=== PATIENT | male | born 1985 | race Caucasian/White ===

== ENCOUNTER 2020-06-21 22:25 | Emergency (ER) | payer OTHER ==
[~2020-06-21] VITALS: Ht 175.3 cm; Wt 68.0 kg
[~2020-06-21 22:25] MED LIST: FLOMAX PO; PERCOCET 5-3251 EACH PO; PHENERGAN25 MG RE; SPACERADULT
[2020-06-21] MEDS ORDERED: PENICILLIN VK250 MG PO (23:14)
[2020-06-21] MEDS ORDERED: HYDROCODON-ACE1 EAC8 PO (23:14)
[2020-06-21 23:21] VITALS: BP 124/75
== END 2020-06-21 23:21 | disposition home or self-care (01) ==
LOC: M.ERS 22:25
DX: K08.89 Other specified disorders of teeth and supporting structures (principal); Z87.442 Personal history of urinary calculi

== ENCOUNTER 2021-01-06 12:56 | Emergency (ER) | payer OTHER ==
[~2021-01-06] VITALS: Ht 175.3 cm; Wt 65.8 kg
[~2021-01-06 12:56] MED LIST changes: +HYDROCODON-ACE1 EAC8 PO; +PENICILLIN VK250 MG PO
[2021-01-06] MEDS ORDERED: PROAIR HFA8.5 GM INH ×2 (13:20→15:23)
[2021-01-06] MEDS ORDERED: MEDROLDOSEPACK PO (15:23)
[2021-01-06] MEDS ORDERED: APAP W/CODEINE1 TA2 PO ×2 (15:23→15:24)
[2021-01-06] MEDS ORDERED: PROMETHAZI6.25 MG/5 PO (15:23)
[2021-01-06 15:37] VITALS: BP 111/79
== END 2021-01-06 15:38 | disposition home or self-care (01) ==
LOC: M.ERS 12:56
DX: J06.9 Acute upper respiratory infection, unspecified (principal); Z20.822 Contact with and (suspected) exposure to COVID-19; Z87.442 Personal history of urinary calculi; Z98.890 Other specified postprocedural states

== ENCOUNTER 2021-01-08 12:56 | Emergency (ER) | payer OTHER ==
[~2021-01-08] VITALS: Ht 175.3 cm; Wt 65.8 kg
[~2021-01-08 12:56] MED LIST changes: +APAP W/CODEINE1 TA2 PO; +MEDROLDOSEPACK PO; +PROAIR HFA8.5 GM INH; +PROMETHAZI6.25 MG/5 PO
[2021-01-08 14:45] LABS: ABSOLUTE LYMPHOCYTES 1.8 thou/uL (0.8-5.3); ABSOLUTE MONOCYTES 0.5 thou/uL (0.0-1.2); ABSOLUTE NEUTROPHILS 4.1 thou/uL (1.6-8.1); BASOPHILS 0.6 %; EOSINOPHILS 0.1 %; HEMATOCRIT 42.1 % (42.0-52.0); HEMOGLOBIN 14.6 gm/dL (14.0-18.0); LYMPHOCYTES 28.1 %; MCH 33.6 pg (26.0-34.0); MCHC 34.6 g/dL (28.0-37.0); MCV 97.1 fL (80.0-100.0); MONOCYTES 7.4 %; MPV 8.9 fl. (7.2-11.1); NUCLEATED RBCS 0 /100WBC; PLATELET COUNT* 102 thou/uL (150-400); POLYS 63.8 %; RBC 4.34 mil/uL (4.50-6.00); RDW-CV 13.4 % (10.5-14.5); WBC 6.4 thou/uL (4.0-11.0)
[2021-01-08 14:53] LABS: CALCIUM 8.4 mg/dL (8.5-10.1); CREATININE 1.2 mg/dL (0.6-1.3); POTASSIUM 3.6 mmol/L (3.5-5.1)
[2021-01-08 14:58] LABS: ALBUMIN 3.5 g/dL (3.4-5.0); TOTAL BILIRUBIN 0.4 mg/dL (<0.1-1.0); TOTAL PROTEIN 6.8 g/dL (6.4-8.2)
[2021-01-08 15:20] LABS: PLATELET ESTIMATE DECREASED
[2021-01-08 15:22] LABS: LARGE PLATELETS RARE
[2021-01-08 17:05] VITALS: BP 103/57
== END 2021-01-08 17:06 | disposition home or self-care (01) ==
LOC: M.ERS 12:56
PROVIDERS: Physician Assistant
DX: R07.89 Other chest pain (principal); R07.81 Pleurodynia; R04.2 Hemoptysis; R05.9 Cough, unspecified; F17.210 Nicotine dependence, cigarettes, uncomplicated; Z87.442 Personal history of urinary calculi; Z98.890 Other specified postprocedural states; Z79.899 Other long term (current) drug therapy